=== PATIENT | male | born 1990 | race Caucasian/White ===

== ENCOUNTER 2024-04-22 05:58 | Emergency (ER) | payer SELFPAY ==
[2024-04-22] MEDS ORDERED: Bupivacaine 0.5% 10 ML VIAL ONE (06:23)
[2024-04-22] MEDS ORDERED: Penicillin V Potassium 250 MG TAB ONE (06:36)
[2024-04-22] MEDS ORDERED: cefTRIAXone (ROCEPHIN) 1 GM VIAL ONE (06:39)
== END 2024-04-22 07:04 | disposition home or self-care (01) ==
LOC: BURERS 05:58
DX: K04.7 Periapical abscess without sinus (principal); K08.89 Other specified disorders of teeth and supporting structures; F17.210 Nicotine dependence, cigarettes, uncomplicated
CPT/HCPCS: 64400; 96372; J0696; J3490